=== PATIENT | female | born 2000 | race African-American/Black ===

== ENCOUNTER 2022-03-02 01:30 | Emergency (ER) | payer OTHER, SELFPAY ==
[2022-03-02 01:34] VITALS: BP 112/74; PULSE 82; RESP 20; TEMP 36.4; O2SAT 100
--- NOTE | 2022-03-02 02:04 | ED.DENTAL ---
HPI - Dental/Oral General Chief complaint: Dental/Oral Stated complaint: Dental Pain Time Seen by Provider: 03/02/22 01:38 History of Present Illness HPI Narrative: 19-year-old female presents emergency room secondary to dental pain. She been seen by the dentist already has scheduled to have an extraction of one of her teeth on the right upper 1 in the right lower and approximately a month. However she is having increasing pain at this time subsequently came to emergency room. No chills or fevers. No difficulty in swallowing. Related Data Allergies Allergy/AdvReac Type Severity Reaction Status Date / Time No Known Allergies Allergy Verified 03/02/22 01:53 Review of Systems Review of Systems: CONSTITUTIONAL: Denies fever, chills, or sweats. EYES: Denies visual changes, redness, or discharge. ENT: Denies rhinorrhea, congestion, sore throat, or otalgia. Dental pain as noted in HPI CARDIOVASCULAR: Denies chest pain, palpitations, or edema. RESPIRATORY: Denies cough or dyspnea. GASTROINTESTINAL: Denies abdominal pain, nausea, vomiting, or diarrhea. GENITOURINARY: Denies dysuria or hematuria. SKIN: Denies rash or itching. MUSCULOSKELETAL: Denies back pain, joint pain, or myalgia. NEUROLOGIC: Denies headache, numbness, or weakness. PSYCHIATRIC: Denies anxiety or depression. PMFSH Past Medical History Medical History No active medical problems Course Course Emergency Course: APPEARANCE: Well appearing, no pain or distress, well-nourished. Head Normocephalic and atraumatic. EYES: PERRLA/EOMI, conjunctivae clear. NOSE: Normal with no drainage EARS:TMS clear with Mck[place], with good light reflex. THROAT: Pharynx clear, no exudate. Right upper posterior canine tooth is fractured off. She is also got a partially fractured tooth on the right lower canine as well. Tenderness to palpation in the area. No purulent drainage. NECK: Supple. No adenopathy, no masses. RESPIRATORY: Airway patent, respirations nonlabored. Clear to auscultation bilaterally, no rales, rhonchi, wheezing. CARDIOVASCULAR: Regular rate and rhythm without murmurs, rubs, or gallops. ABDOMINAL: Soft, nontender, nondistended, no hepatosplenomegaly Musculoskeletal: Moves all extremities. Strength/ROM intact, No edema, No calf tenderness. NEURO: Alert. Cranial nerves II through XII intact. Normal gait. Good coordination. Nonfocal examination. SKIN:: Warm, dry. Normal Color PSYCHIATRIC: Normal affect/mood, normal interaction Vital Signs Vital signs: Vital Signs Temperature 97.5 F L 03/02/22 01:34 Pulse Rate 82 03/02/22 01:34 Respiratory Rate 20 03/02/22 01:34 Blood Pressure 112/74 03/02/22 01:34 Pulse Oximetry 100 03/02/22 01:34 Oxygen Delivery Room Air 03/02/22 01:34 Temperature 97.5 F L 03/02/22 01:34 Pulse Rate 82 03/02/22 01:34 Respiratory Rate 20 03/02/22 01:34 Blood Pressure 112/74 03/02/22 01:34 Pulse Oximetry 100 03/02/22 01:34 Oxygen Delivery Room Air 03/02/22 01:34 MDM - Dental/Oral MDM Narrative Medical decision making narrative: With the patient's degree of pain we will put her on a course of antibiotics she may have an early infection at this time. Also put her on a course of medication to assist with the pain. She is to follow-up with her dentist as scheduled. Discharge Plan Discharge Clinical Impression: Toothache Patient Disposition: Home, Self-Care Condition: Stable Instructions: Antibiotic Form, Toothache (ED) Additional Instructions: Follow-up with your dentist as scheduled. Return if worse. Take medication as prescribed. Prescriptions: New naproxen 375 mg tablet 375 mg PO BID Qty: 20 0RF amoxicillin-pot clavulanate [Augmentin XR] 1,000-62.5 mg tablet extended release 12 hr 1 tablet PO Q12H Qty: 20 0RF Follow-up/Referrals: PHYSICIAN,STUDENT EDUCATION SPECIALIST [Primary Care Provider] - Stand Alone Forms: Work/School Release IP
[2022-03-02] MEDS: NAPROXEN 500 MG TABLET PO (02:10)
== END 2022-03-02 02:15 | disposition home or self-care (01) ==
PROVIDERS: Emergency Provider Emergency Medicine
DX: K08.89 Other specified disorders of teeth and supporting structures (principal)
CPT/HCPCS: 99283; A9270